=== PATIENT | female | born 1965 | race African-American/Black ===

== ENCOUNTER 2017-03-11 15:33 | Observation (INO) | payer MEDICARE, OTHER ==
[~2017-03-11 15:33] MED LIST: ALBUAER3 INH; ATEN25TA PO; BECL80AE3 INH; CETI10 PO; CLON0.1T PO; CYCL1TAB29 PO; DICY20TA10 PO; HYDR-3516 PO; IBUP-232 PO; LOSA25TA PO; METH500T3 PO; MONT10TA4 PO; NAPR500T PO; OMEP20TA PO; TRAM50TA PO; TRIME100 PO
[2017-03-11 15:34] VITALS: BP 152/85; PULSE 58; RESP 15; TEMP 98; O2SAT 100
--- NOTE | 2017-03-11 16:00 | PD ---
Physical Exam Date Seen by Provider: Mar 11, 2017 Time Seen by Provider: 15:55 Narrative Pt is a 51 year old female presenting to the ED for evaluation of Left arm, shoulder and anterior left upper chest wall pain. Symptoms started this morning after she was on the phone using the left arm to talk, and hung up the phone. She states she could not extend her left arm. Pain is constant and worse with movement. Reports history of a heart attack, loop recorder secondary to v-fib. VSS. Awaiting bed placement. Data Data Last Documented VS Vital Signs Date Time Temp Pulse Resp B/P (MAP) Pulse Ox O2 Delivery O2 Flow Rate FiO2 03/11/17 15:34 98.0 58 15 152/85 (107) 100 MDM Supervised Visit with SHIRA: Monae De La Rosa Mar 11, 2017 16:00
--- NOTE | 2017-03-11 16:18 | RADRPT ---
EXAM DATE/TIME: 03/11/2017 16:18 [facility] COMPARISON: No previous studies available for comparison. INDICATIONS : Chest pain. MEDICAL HISTORY : Hypertension. Chronic obstructive pulmonary disease. SURGICAL HISTORY : Loop recorder. ENCOUNTER: Initial ACUITY: 1 day PAIN SCORE: 8/10 LOCATION: Bilateral chest FINDINGS: PA and lateral views of the chest demonstrate the lungs to be symmetrically aerated without evidence of mass, infiltrate or effusion. Mild cardiomegaly. No pulmonary vascular engorgement observed. Monit oring device overlying the anterior left chest. Osseous structures are intact. CONCLUSION: Mild cardiomegaly. Clear lungs. Donal Plunkett Jr., MD on March 11, 2017 at 16:16 Board Certified Radiologist. This report was verified electronically.
[2017-03-11 16:59] LABS: AUTOMATED NEUTROPHIL # 5.8 TH/MM3 (1.8-7.7); BASOPHIL % 0.5 % (0.0-2.0); EOSINOPHIL # 0.1 TH/MM3 (0-0.4); EOSINOPHIL % 1.2 % (0.0-4.0); HEMATOCRIT 37.5 % (35.0-46.0); HEMO FLAGS DIFF FINAL; LYMPH % 30.5 % (9.0-44.0); LYMPHOCYTE # 2.9 TH/MM3 (1.0-4.8); MEAN CELL VOLUME 89.7 FL (80.0-100.0); MEAN CORPUSCULAR HEMOGLOBIN 28.9 PG (27.0-34.0); MEAN CORPUSCULAR HGB CONC 32.2 % (32.0-36.0); MONO % 7.3 % (0.0-8.0); NEUT % 60.5 % (16.0-70.0); PLATELET COUNT 339 TH/MM3 (150-450); RED BLOOD COUNT 4.18 MIL/MM3 (4.00-5.30); RED CELL DISTRIBUTION WIDTH 14.4 % (11.6-17.2); WHITE BLOOD COUNT 9.7 TH/MM3 (4.0-11.0)
[2017-03-11 17:15] LABS: ALT (GPT) 34 U/L (10-53); ANION GAP 7 MEQ/L (5-15); AST (GOT) 24 U/L (15-37); BLOOD UREA NITROGEN 13 MG/DL (7-18); CHLORIDE 108 MEQ/L (98-107); GLOMERULAR FILTRATION RATE 88 ML/MIN (>89); POTASSIUM 4.4 MEQ/L (3.5-5.1); SODIUM (NA) 143 MEQ/L (136-145)
[2017-03-11 17:19] LABS: ALKALINE PHOSPHATASE 91 U/L (45-117); CREATINE KINASE 577 U/L (26-192); TOTAL BILIRUBIN ADULT 0.4 MG/DL (0.2-1.0)
[2017-03-11 17:31] LABS: CKMB 11.5 NG/ML (0.5-3.6)
[2017-03-11] MEDS ORDERED: ASPIRIN 325 MG TAB PO ONE (18:00)
[2017-03-11] MEDS ORDERED: ONDANSETRON HCL 4 MG/2 ML VIAL IV PUSH ONE (18:15)
[2017-03-11] MEDS ORDERED: MORPHINE SULFATE 4 MG/ML INJ IV PUSH ONE (18:15)
--- NOTE | 2017-03-11 18:18 | PD ---
HPI Chief Complaint: Pain: Acute or Chronic Time Seen by Provider: 17:55 Travel History International Travel<30 days: No Contact w/Intl Traveler<30days: No Traveled to known affect area: No History of Present Illness HPI 51-year-old female that presents to the ED for evaluation of back pain on the left chest and left arm. Patient has had this since today when she was talking on the phone with her daughter. Per patient she was talking on the phone with her daughter with her elbow on the counter and then she noticed that after she stopped talking to her. From started hurting. Per patient from the mid elbow to the left chest. Per patient she's never had like this before. She does have a history of significant heart disease including having a quarter as well as V. tach in the past and hypertension. She had heart surgery when she was younger for a whole in her heart. Patient is tender with touch. But not completely. Per patient pain is 8 out of 10. Gets worse with movement. Patient also gets worse with exertion. Denies any recent travel. Per patient she's had a stress test about one to 2 years ago. 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 She denies any abdominal pain. No nausea or vomiting. Nothing seems to make the pain better. She took baby aspirin today. Per patient pain is sharp. PFSH Past Medical History Arthritis: Yes Asthma: Yes Cardiovascular Problems: Yes COPD: Yes GERD: Yes Hypertension: Yes Migraines: Yes Menopausal: Yes Dilation and Curettage (D&C): Yes Past Surgical History Cardiac Surgery: Yes (OPEN HEART) Genitourinary Surgery: Yes (KIDNEY SURGERY X 5) Social History Alcohol Use: No Tobacco Use: No Substance Use: No Allergies-Medications (Allergen,Severity, Reaction): Coded Allergies: doxycycline (Verified Allergy, Severe, 03/11/17) lisinopril (Verified Allergy, Severe, 03/11/17) minocycline (Verified Allergy, Severe, 03/11/17) sumatriptan (Verified Allergy, Severe, 03/11/17) tetracycline (Verified Allergy, Severe, Anaphylaxis, 03/11/17) tigecycline (Verified Allergy, Severe, 03/11/17) morphine (Verified Allergy, Intermediate, Hallucinations, 03/11/17) Uncoded Allergies: GI COCKTAIL (Allergy, Severe, 11/19/16) Reported Meds & Prescriptions Reported Meds & Active Scripts Active Reported Methocarbamol 500 Mg Tab 500 Mg PO TID Naproxen 500 Mg Tab 500 Mg PO BID Omeprazole 20 Mg Tab 20 Mg PO DAILY Hydrocodone-Acetaminophen 5-325 mg Tab 1 Tab PO Q6H PRN Losartan (Losartan Potassium) 25 Mg Tab 25 Mg PO DAILY Clonidine (Clonidine HCl) 0.1 Mg Tab 0.1 Mg PO BID Trimethoprim 100 Mg Tab 100 Mg PO BID Montelukast (Montelukast Sodium) 10 Mg Tab 10 Mg PO HS Cetirizine (Cetirizine HCl) 10 Mg Tab 10 Mg PO DAILY Qvar Inh (Beclomethasone Dipropionate) 80 Mcg/Act Aero 1 Puff INH BID Proair Hfa 8.5 GM Inh (Albuterol Sulfate) 90 Mcg/Act Aer 1 Puff INH Q4H PRN 108 mcg/actuation Tramadol (Tramadol HCl) 50 Mg Tab 50 Mg PO Q6H PRN Atenolol 25 Mg Tab 25 Mg PO DAILY Review of Systems Except as stated in HPI: all other systems reviewed are Neg Physical Exam Narrative GENERAL: SKIN: Warm and dry. HEAD: Atraumatic. Normocephalic. EYES: Pupils equal and round. No scleral icterus. No injection or drainage. ENT: No nasal bleeding or discharge. Mucous membranes pink and moist. Tongue is midline. No uvula deviation. NECK: Trachea midline. No JVD. CARDIOVASCULAR: Regular rate and rhythm. No murmurs, S3, S4. Some of the chest discomfort is reproducible with touch on the left side. RESPIRATORY: No accessory muscle use. Clear to auscultation. Breath sounds equal bilaterally. GASTROINTESTINAL: Abdomen soft, non-tender, nondistended. Hepatic and splenic margins not palpable. MUSCULOSKELETAL: Extremities without clubbing, cyanosis, or edema. No obvious deformities. Full range of motion of the upper and lower extremities bilaterally. Pain range of motion of the left upper extremity. 2+ pulses bilaterally. NEUROLOGICAL: Awake and alert. No obvious cranial nerve deficits. Motor grossly within normal limits. Five out of 5 muscle strength in the arms and legs. Normal speech. PSYCHIATRIC: Appropriate mood and affect; insight and judgment normal. Data Data Last Documented VS Vital Signs Date Time Temp Pulse Resp B/P (MAP) Pulse Ox O2 Delivery O2 Flow Rate FiO2 03/11/17 18:11 60 15 03/11/17 15:34 98.0 152/85 (107) 100 Orders Orders Electrocardiogram (03/11/17 16:00) Ckmb (Isoenzyme) Profile (03/11/17 16:00) Complete Blood Count With Diff (03/11/17 16:00) Comprehensive Metabolic Panel (03/11/17 16:00) Magnesium (Mg) (03/11/17 16:00) Prothrombin Time / Inr (Pt) (03/11/17 16:00) Act Partial Throm Time (Ptt) (03/11/17 16:00) Troponin I (03/11/17 16:00) Chest, Pa & Lat (03/11/17 16:00) CKMB (03/11/17 16:15) CKMB% (03/11/17 16:15) Aspirin (Aspirin) (03/11/17 18:00) Morphine Inj (Morphine Inj) (03/11/17 18:15) Ondansetron Inj (Zofran Inj) (03/11/17 18:15) Humerus (Min 2vws) (03/11/17 ) Admit Order (Ed Use Only) (03/11/17 18:44) Labs Laboratory Tests Test 03/11/17 16:15 White Blood Count 9.7 TH/MM3 Red Blood Count 4.18 MIL/MM3 Hemoglobin 12.1 GM/DL Hematocrit 37.5 % Mean Corpuscular Volume 89.7 FL Mean Corpuscular Hemoglobin 28.9 PG Mean Corpuscular Hemoglobin Concent 32.2 % Red Cell Distribution Width 14.4 % Platelet Count 339 TH/MM3 Mean Platelet Volume 7.7 FL Neutrophils (%) (Auto) 60.5 % Lymphocytes (%) (Auto) 30.5 % Monocytes (%) (Auto) 7.3 % Eosinophils (%) (Auto) 1.2 % Basophils (%) (Auto) 0.5 % Neutrophils # (Auto) 5.8 TH/MM3 Lymphocytes # (Auto) 2.9 TH/MM3 Monocytes # (Auto) 0.7 TH/MM3 Eosinophils # (Auto) 0.1 TH/MM3 Basophils # (Auto) 0.0 TH/MM3 CBC Comment DIFF FINAL Differential Comment Prothrombin Time 11.0 SEC Prothromb Time International Ratio 1.0 RATIO Activated Partial Thromboplast Time 27.0 SEC Blood Urea Nitrogen 13 MG/DL Creatinine 0.82 MG/DL Random Glucose 125 MG/DL Total Protein 8.4 GM/DL Albumin 3.5 GM/DL Calcium Level 8.9 MG/DL Magnesium Level 2.0 MG/DL Alkaline Phosphatase 91 U/L Aspartate Amino Transf (AST/SGOT) 24 U/L Alanine Aminotransferase (ALT/SGPT) 34 U/L Total Bilirubin 0.4 MG/DL Sodium Level 143 MEQ/L Potassium Level 4.4 MEQ/L Chloride Level 108 MEQ/L Carbon Dioxide Level 28.0 MEQ/L Anion Gap 7 MEQ/L Estimat Glomerular Filtration Rate 88 ML/MIN Total Creatine Kinase 577 U/L Creatine Kinase MB 11.5 NG/ML Creatine Kinase MB % 2.0 % Troponin I LESS THAN 0.02 NG/ML MDM Medical Decision Making Medical Screen Exam Complete: Yes Emergency Medical Condition: Yes Medical Record Reviewed: Yes Interpretation(s) CBC & BMP Diagram 03/11/17 16:15 Total Protein 8.4 H, Albumin 3.5, Calcium Level 8.9, Magnesium Level 2.0, Alkaline Phosphatase 91, Aspartate Amino Transf (AST/SGOT) 24, Alanine Aminotransferase (ALT/SGPT) 34, Total Bilirubin 0.4 Troponin negative. CK slightly elevated. Last Impressions Chest X-Ray 03/11/17 1600 Signed Impressions: Service Date/Time: Saturday, March 11, 2017 16:18 - CONCLUSION: Mild cardiomegaly. Clear lungs. Donal Plunkett Jr., MD EKG shows sinus bradycardia with no sign of acute ischemia or arrhythmia read by me and attending. Differential Diagnosis Chest pain versus a typical chest pain versus musculoskeletal pain versus ACS versus anxiety Narrative Course 51-year-old female that presents to the ED for evaluation of chest pain and left arm pain. Patient was properly examined and was found to have signs and symptoms consistent with muscle scale pain. Patient does report to have risk factors for heart disease. Including heart disease herself. At this time I recommend labs and imaging. Patient's labs and imaging were reassuring. No sign of acute NC. Case was discussed in my attending Dr Mathew who recommends giving patient the option for admission for chest pain rule out. Patient was given aspirin and morphine with some relief. Procedures EKG Prior to Arrival: No Diagnosis Primary Impression: Chest pain in adult Admitting Information Admitting Physician Requests: Observation Chirag Cobian Mar 11, 2017 18:18
[2017-03-11] MEDS ORDERED: ONDANSETRON HCL 4 MG/2 ML VIAL IV PRN (18:45)
[2017-03-11] MEDS ORDERED: ACETAMINOPHEN 500 MG CPLT PO PRN (18:45)
[2017-03-11] MEDS ORDERED: SODIUM CHLORIDE 0.9% FLUSH 10 ML FLUSH IV FLUSH PRN (18:45)
[2017-03-11] MEDS ORDERED: ACETAMINOPHEN/HYDROcodone 325 MG/7.5 MG TAB PO PRN (18:45)
--- NOTE | 2017-03-11 19:16 | RADRPT ---
EXAM DATE/TIME: 03/11/2017 18:19 [facility] COMPARISON: No previous studies available for comparison. INDICATIONS : Left humerus pain no known injury. MEDICAL HISTORY : None. SURGICAL HISTORY : None. ENCOUNTER: Initial ACUITY: 1 day PAIN SCORE: 8/10 LOCATION: Left humerus. FINDINGS: Two view examination of the left humerus demonstrates no evidence of fracture or dislocation. Bony m ineralization is normal. The soft tissue structures are intact. CONCLUSION: Unremarkable examination of the left humerus. Reinier Casey MD on March 11, 2017 at 19:14 Board Certified Radiologist. This report was verified electronically.
[2017-03-11 19:39] VITALS: BP 144/65; PULSE 61; RESP 18; O2SAT 98
[2017-03-11 20:00] VITALS: O2SAT 98
[2017-03-11] MEDS: SODIUM CHLORIDE 0.9% FLUSH 10 ML FLUSH IV FLUSH SCH (21:00)
[2017-03-11 21:08] VITALS: BP 135/69; PULSE 58; RESP 18; TEMP 98.6; O2SAT 99
[2017-03-11 21:21] LABS: CREATINE KINASE 643 U/L (26-192)
[2017-03-11 21:34] LABS: CKMB 10.9 NG/ML (0.5-3.6)
[2017-03-11 23:33] VITALS: BP 136/61; PULSE 58; RESP 17; TEMP 98.6; O2SAT 98
[2017-03-12 00:56] LABS: CREATINE KINASE 578 U/L (26-192)
[2017-03-12 01:08] LABS: CKMB 9.7 NG/ML (0.5-3.6)
[2017-03-12 03:39] VITALS: BP 122/60; PULSE 53; RESP 17; TEMP 98.5; O2SAT 98
[2017-03-12 06:25] VITALS: PULSE 72
[2017-03-12 07:21] VITALS: BP 125/71; PULSE 61; RESP 18; TEMP 97.8; O2SAT 98
[2017-03-12 07:43] VITALS: PULSE 63
[2017-03-12 07:48] VITALS: PULSE 95
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
[2017-03-12] MEDS: SODIUM CHLORIDE 0.9% FLUSH 10 ML FLUSH IV FLUSH SCH (07:56)
[2017-03-12] MEDS ORDERED: NITROGLYCERIN 0.4 MG SL 25 TABS/BTL SL PRN (08:00)
[2017-03-12] MEDS ORDERED: PANTOPRAZOLE SOD 20 MG DELAYED RELEASE TAB PO SCH (09:00)
[2017-03-12] MEDS ORDERED: CETIRIZINE HCL 10 MG TAB PO SCH (09:00)
[2017-03-12] MEDS ORDERED: LOSARTAN 25 MG TAB PO SCH (09:00)
--- NOTE | 2017-03-12 09:52 | TR ---
Date Performed: 03/12/2017 Time Performed: 09:19:33 DOCTOR: Katina Rivera DRUG LIST: CLINICAL HISTORY: REASON FOR TEST: REASON FOR ENDING: OBSERVATION: CONCLUSION: Torsten protocol performed, test stopped when target heart rate reached secondary to h ip pain. ST depression in inferior and lateral leads, returned to baseline in recovery stage. Good ex ercise tolerance. No reproduc chest discomfort. Rare PVC. Hypertensive BP response, returned to basel ine. Maximum QC=386 Target HR Achieved=90.0% Maximum PP=924/84 Total Exercise Time=3:01. COMMENTS:
--- NOTE | 2017-03-12 09:55 | EKG ---
Date Performed: 03/11/2017 Time Performed: 23:29:58 PTAGE: 51 years EKG: SINUS BRADYCARDIA BORDERLINE ECG Since PREVIOUS TRACING , no significant change noted DOCTOR: Katina Rivera Interpretating Date/Time 03/12/2017 09:53:50
--- NOTE | 2017-03-12 09:55 | EKG ---
Date Performed: 03/11/2017 Time Performed: 20:05:26 PTAGE: 51 years EKG: SINUS BRADYCARDIA BORDERLINE ECG Since PREVIOUS TRACING , no significant change noted DOCTOR: Katina Rivera Interpretating Date/Time 03/12/2017 09:54:54
--- NOTE | 2017-03-12 09:58 | EKG ---
Date Performed: 03/11/2017 Time Performed: 16:27:37 PTAGE: 51 years EKG: SINUS BRADYCARDIA BORDERLINE ECG Since PREVIOUS TRACING , no significant change noted DOCTOR: Katina Rivera Interpretating Date/Time 03/12/2017 09:56:52
--- NOTE | 2017-03-12 10:09 | HHI.DCPOC ---
Discharge Care Plan Diagnosis: (1) History of loop recorder (2) Musculoskeletal arm pain Goals to Promote Your Health * To prevent worsening of your condition and complications * To maintain your health at the optimal level Directions to Meet Your Goals Take your medications as prescribed Follow your dietary instruction Follow activity as directed Keep your appointments as scheduled Take your immunizations and boosters as scheduled If your symptoms worsen call your PCP, if no PCP go to Urgent Care Center or Emergency Room Smoking is Dangerous to Your Health. Avoid second hand smoke Call the 24-hour hour crisis hotline for domestic abuse at Elsa Saxena Mar 12, 2017 10:08
[2017-03-12] MEDS ORDERED: ATENOLOL 25 MG TAB PO SCH (11:00)
[2017-03-13] MEDS ORDERED: SERT-132 PO (08:03)
[2017-03-13] MEDS ORDERED: VOLT1GEL4 (08:03)
[2017-03-13] MEDS ORDERED: PROM12.54 PO (08:03)
[2017-03-13] MEDS ORDERED: NITR1CAP36 PO (08:03)
[2017-03-19] MEDS ORDERED: OXYB5TAB10 PO (09:51)
== END 2017-03-12 12:21 | disposition home or self-care (01) ==
LOC: NEPC 15:33 → NEDA 18:45 → NEPFCDU 20:51
PROVIDERS: ADMIT Internal Medicine Cardiovascular Disease; ATTEND Internal Medicine Cardiovascular Disease
DX: M79.602 Pain in left arm (principal); R07.89 Other chest pain; R00.1 Bradycardia, unspecified; I10 Essential (primary) hypertension; K21.9 Gastro-esophageal reflux disease without esophagitis
CPT/HCPCS: 71020; 73060; 80053; 82550; 82552; 83735; 84484; 85025; 85610; 85730; 93005; 93017; 96374; 99285; G0378; J2405

== ENCOUNTER 2017-03-13 06:59 | Emergency (ER) | payer MEDICARE, MEDICAID ==
[~2017-03-13] VITALS: Ht 162.6 cm; Wt 82.0 kg
[~2017-03-13 06:59] MED LIST changes: -CYCL1TAB29 PO; -DICY20TA10 PO; -IBUP-232 PO
[2017-03-13 07:01] VITALS: BP 171/76; PULSE 77; RESP 18; TEMP 98.7; O2SAT 100
[2017-03-13] MEDS ORDERED: LORazepam 2 MG/ML VIAL IV PUSH ONE (07:45)
[2017-03-13] MEDS ORDERED: diphenhydrAMINE HCL 50 MG/ML VIAL IV PUSH ONE (07:45)
[2017-03-13] MEDS ORDERED: NITR1CAP36 PO (08:03)
[2017-03-13] MEDS ORDERED: VOLT1GEL4 (08:03)
[2017-03-13] MEDS ORDERED: PROM12.54 PO (08:03)
[2017-03-13] MEDS ORDERED: SERT-132 PO (08:03)
--- NOTE | 2017-03-13 08:06 | PD ---
HPI Chief Complaint: Allergic/Adverse Reaction Time Seen by Provider: 07:31 Travel History International Travel<30 days: No Contact w/Intl Traveler<30days: No Traveled to known affect area: No History of Present Illness HPI This is a 51 year old female who presents to the emergency department with multiple complaints. She says last night she took Eliquis for the first time and the ever since then she has been jittery, constant, severe. She has felt anxious, tingly and has had some headache and increasing pain on the left side of her chest. She feels confident that she is having an allergic reaction to Eliquis. She was just discharged from the chest pain center yesterday in the setting of left-sided chest discomfort. She had a reassuring stress test. She was started on Xarelto because she has a history of paroxysmal A. fib. Her primary care doctor told her to take it but she hadn't started it yet. Patient says she has had allergic reactions before and they've been very similar to this. She says she took 25 mg of oral Benadryl at home but her symptoms have not improved. PFSH Past Medical History Hx Anticoagulant Therapy: Yes (eliquis) Arthritis: Yes Asthma: Yes Atrial Fibrillation: Yes Heart Rhythm Problems: No Cardiac Catheterization: No Cardiovascular Problems: Yes (age 3 hole in heart repair, hx angina) High Cholesterol: No Congestive Heart Failure: No COPD: Yes Diabetes: No GERD: Yes Hypertension: Yes Migraines: Yes Influenza Vaccination: Yes ?: Not Menopausal: Yes Dilation and Curettage (D&C): Yes Tubal Ligation: Yes Past Surgical History Cardiac Surgery: Yes (OPEN HEART) Coronary Artery Bypass Graft: No Genitourinary Surgery: Yes ( kidney x5 (recurrent stones)) Hysterectomy: No Social History Alcohol Use: No Tobacco Use: No Substance Use: No Allergies-Medications (Allergen,Severity, Reaction): Coded Allergies: doxycycline (Verified Allergy, Severe, 03/13/17) lisinopril (Verified Allergy, Severe, 03/13/17) minocycline (Verified Allergy, Severe, 03/13/17) sumatriptan (Verified Allergy, Severe, 03/13/17) tetracycline (Verified Allergy, Severe, Anaphylaxis, 03/13/17) tigecycline (Verified Allergy, Severe, 03/13/17) morphine (Verified Allergy, Intermediate, Hallucinations, 03/13/17) apixaban (Verified Adverse Reaction, Mild, Headache, 03/13/17) Uncoded Allergies: GI COCKTAIL (Allergy, Severe, 11/19/16) Reported Meds & Prescriptions Reported Meds & Active Scripts Active Reported Promethazine (Promethazine HCl) 12.5 Mg Tab 25 Mg PO Q6H PRN Nitrofurantoin Macrocrystal 100 Mg Cap 200 Mg PO BID Sertraline (Sertraline HCl) 50 Mg Tab 50 Mg PO BID Voltaren (Diclofenac Sodium) 1 % Gel..gram. Methocarbamol 500 Mg Tab 500 Mg PO QID Naproxen 500 Mg Tab 500 Mg PO BID Omeprazole 20 Mg Tab 20 Mg PO DAILY Hydrocodone-Acetaminophen 5-325 mg Tab 1 Tab PO Q6H PRN Losartan (Losartan Potassium) 25 Mg Tab 25 Mg PO DAILY Clonidine (Clonidine HCl) 0.1 Mg Tab 0.1 Mg PO BID For BP >170/100 Trimethoprim 100 Mg Tab 100 Mg PO HS Montelukast (Montelukast Sodium) 10 Mg Tab 10 Mg PO HS Cetirizine (Cetirizine HCl) 10 Mg Tab 10 Mg PO DAILY Qvar Inh (Beclomethasone Dipropionate) 80 Mcg/Act Aero 1 Puff INH BID Proair Hfa 8.5 GM Inh (Albuterol Sulfate) 90 Mcg/Act Aer 1 Puff INH Q4H PRN 108 mcg/actuation Tramadol (Tramadol HCl) 50 Mg Tab 50 Mg PO Q6H PRN Atenolol 25 Mg Tab 50 Mg PO BID Review of Systems Except as stated in HPI: all other systems reviewed are Neg Physical Exam Narrative GENERAL:Well appearing, no acute distress SKIN: Focused skin assessment warm and dry. HEAD: Atraumatic. Normocephalic. EYES: Pupils equal and round. No injection or drainage. ENT: Moist mucous membranes NECK: Trachea midline. CARDIOVASCULAR: Regular rate and rhythm. No murmur appreciated. RESPIRATORY: Clear to auscultation. Breath sounds equal bilaterally. GASTROINTESTINAL: Abdomen soft, non-tender, nondistended. MUSCULOSKELETAL: No obvious deformities. NEUROLOGICAL: Intermittently shaking her upper extremities and torso from side to side. Seems voluntary. Awake and alert. No obvious cranial nerve deficits. No dysarthria or aphasia. No upper or lower extremity drift. No upper extremity ataxia. PSYCHIATRIC: Anxious Data Data Last Documented VS Vital Signs Date Time Temp Pulse Resp B/P (MAP) Pulse Ox O2 Delivery O2 Flow Rate FiO2 03/13/17 07:01 98.7 77 18 171/76 (107) 100 Orders Orders Diphenhydramine Inj (Benadryl Inj) (03/13/17 07:45) Lorazepam Inj (Ativan Inj) (03/13/17 07:45) MDM Medical Decision Making Medical Screen Exam Complete: Yes Emergency Medical Condition: Yes Differential Diagnosis Medication adverse reaction, anxiety, stroke, TIA Narrative Course This is a 51-year-old female who presents to the emergency department with multiple nonspecific symptoms the worst of which is jitteriness and palpitations. She says this started ever since she took Eliquis last evening for the first time. She feels fairly confident this is a drug reaction. She appears very anxious on exam. She appears to have some voluntary movements of her arms or legs which she describes as jitteriness. I suspect the patient is severing from anxiety. She acknowledges that she struggled with anxiety in the past. She was given 25 mg of Benadryl and a half milligram of Ativan. She feels much better on reassessment. I think she is safe for discharge. She just had a complete workup and was discharged from the chest pain center yesterday with a negative stress test. I don't think any additional testing is warranted at this time. Diagnosis Primary Impression: Adverse reaction to drug Qualified Codes: T88.7XXA - Unspecified adverse effect of drug or medicament, initial encounter Additional Impression: Anxiety Patient Instructions: General Instructions Additional Instructions: If you develop severe chest pain, shortness of breath, sweating, lightheadedness , dizziness or difficulty breathing return to the emergency department immediately. Followup with your primary care physician in 2-3 days if your symptoms are not resolved. Med/Other Pt SpecificInfo: No Change to Meds Disposition: 01 DISCHARGE HOME Condition: Stable Kim Hoover MD Mar 13, 2017 08:06
[2017-03-19] MEDS ORDERED: OXYB5TAB10 PO (09:51)
== END 2017-03-13 09:29 | disposition home or self-care (01) ==
LOC: NEPC 06:59
DX: R00.2 Palpitations (principal); T45.515A Adverse effect of anticoagulants, initial encounter; F41.9 Anxiety disorder, unspecified; I48.0 Paroxysmal atrial fibrillation; I10 Essential (primary) hypertension; M19.90 Unspecified osteoarthritis, unspecified site; J44.9 Chronic obstructive pulmonary disease, unspecified; J45.909 Unspecified asthma, uncomplicated; K21.9 Gastro-esophageal reflux disease without esophagitis
CPT/HCPCS: 96374; 96375; 99284; J1200; J2060

== ENCOUNTER 2017-07-07 10:06 | Emergency (ER) | payer MEDICARE, MEDICAID ==
[~2017-07-07] VITALS: Ht 165.1 cm; Wt 85.3 kg
[~2017-07-07 10:06] MED LIST changes: -NAPR500T PO; +NAPR500T2 PO; +NITR1CAP36 PO; -OMEP20TA PO; +OMEP20TA93 PO; +OXYB5TAB8 PO; +PROM12.54 PO; +SERT-132 PO; +VOLT1GEL16
[2017-07-07 10:16] VITALS: BP 149/65; PULSE 74; RESP 16; TEMP 98.3; O2SAT 97
[2017-07-07] MEDS ORDERED: SODIUM CHLOR 0.9% 1000 ML INJ 1,000 ML IV SCH (10:30)
[2017-07-07] MEDS ORDERED: SODIUM CHLORIDE 0.9% FLUSH 10 ML FLUSH IV FLUSH PRN (10:30)
[2017-07-07] MEDS ORDERED: ONDANSETRON HCL 4 MG/2 ML VIAL IVP ONE (10:30)
[2017-07-07] MEDS ORDERED: KETOROLAC TROMETHAMINE 30 MG/ML (IVP) VIAL IVP ONE (10:30)
[2017-07-07 11:01] LABS: BILIRUBIN, URINE NEG (NEG); BLOOD, URINE MOD (NEG); GLUCOSE,URINE NEG (NEG); KETONE, URINE NEG (NEG); NITRITE,URINE NEG (NEG); URINE LEUKOCYTE ESTERASE NEG (NEG)
[2017-07-07 11:02] LABS: AUTOMATED NEUTROPHIL # 6.3 TH/MM3 (1.8-7.7); BASOPHIL # 0.1 TH/MM3 (0-0.2); BASOPHIL % 0.7 % (0.0-2.0); EOSINOPHIL # 0.3 TH/MM3 (0-0.4); EOSINOPHIL % 2.9 % (0.0-4.0); HEMATOCRIT 38.8 % (35.0-46.0); HEMOGLOBIN 12.6 GM/DL (11.6-15.3); LYMPH % 25.2 % (9.0-44.0); LYMPHOCYTE # 2.6 TH/MM3 (1.0-4.8); MEAN CELL VOLUME 88.1 FL (80.0-100.0); MEAN CORPUSCULAR HEMOGLOBIN 28.7 PG (27.0-34.0); MEAN CORPUSCULAR HGB CONC 32.6 % (32.0-36.0); MEAN PLATELET VOLUME 7.6 FL (7.0-11.0); MONO % 8.3 % (0.0-8.0); MONOCYTE # 0.8 TH/MM3 (0-0.9); NEUT % 62.9 % (16.0-70.0); PLATELET COUNT 348 TH/MM3 (150-450); RED CELL DISTRIBUTION WIDTH 12.8 % (11.6-17.2); WHITE BLOOD COUNT 10.1 TH/MM3 (4.0-11.0)
[2017-07-07 11:09] LABS: MUCUS URINE FEW /lpf (OCC); URINE COLOR YELLOW (YELLW/STRAW)
[2017-07-07 11:10] LABS: BACTERIA, URINE FEW /hpf; SQUAMOUS EPITHELIAL CELL URINE 0-5 /hpf (0-5)
[2017-07-07 11:14] LABS: CALCIUM 8.9 MG/DL (8.5-10.1); PROTHROMBIN TIME - PATIENT 10.6 SEC (9.8-11.6)
[2017-07-07 11:15] LABS: ALBUMIN 3.2 GM/DL (3.4-5.0)
[2017-07-07 11:17] LABS: DIRECT BILIRUBIN ADULT 0.1 MG/DL (0.0-0.2)
[2017-07-07 11:18] LABS: CREATININE 0.85 MG/DL (0.50-1.00)
[2017-07-07 11:19] LABS: INDIRECT BILIRUBIN 0.3 MG/DL (0.0-0.8); TOTAL BILIRUBIN ADULT 0.4 MG/DL (0.2-1.0); TOTAL PROTEIN 8.1 GM/DL (6.4-8.2)
[2017-07-07] MEDS ORDERED: ASPI-516 PO (11:31)
[2017-07-07 11:32] VITALS: RESP 17; O2SAT 98
[2017-07-07] MEDS ORDERED: IOHEXOL 350 MG/ML 10 ML VIAL (for RAD DIAG) IVCONTRAST ONE (11:42)
--- NOTE | 2017-07-07 11:48 | PD ---
HPI Chief Complaint: Abdominal Pain Time Seen by Provider: 10:25 Travel History International Travel<30 days: No Contact w/Intl Traveler<30days: No Traveled to known affect area: No History of Present Illness HPI Patient is a 51-year-old female who comes in complaining of right upper quadrant abdominal pain that radiates to her back. She says it started last night, seems to be getting worse. She has tried taking Aleve, which helped for a little while, but the pain came back. She has a pain is not related to food. She denies nausea or vomiting. She denies any urinary symptoms. She denies fever or chills. She says she has history of kidney stones, but this pain feels different. PFSH Past Medical History Hx Anticoagulant Therapy: Yes (BABY ASA DAILY) Arthritis: Yes Asthma: Yes Atrial Fibrillation: Yes Heart Rhythm Problems: No Cardiac Catheterization: No Cardiovascular Problems: Yes (age 3 hole in heart repair, hx angina) High Cholesterol: No Congestive Heart Failure: No COPD: Yes Diabetes: No GERD: Yes Hypertension: Yes Migraines: Yes Tetanus Vaccination: > 5 Years Influenza Vaccination: Yes ?: Unknown Menopausal: Yes Dilation and Curettage (D&C): Yes Tubal Ligation: Yes Past Surgical History Cardiac Surgery: Yes (OPEN HEART) Coronary Artery Bypass Graft: No Genitourinary Surgery: Yes ( kidney x5 (recurrent stones)) Hysterectomy: No Social History Alcohol Use: No Tobacco Use: No Substance Use: No Allergies-Medications (Allergen,Severity, Reaction): Coded Allergies: doxycycline (Verified Allergy, Severe, 07/07/17) lisinopril (Verified Allergy, Severe, 07/07/17) minocycline (Verified Allergy, Severe, 07/07/17) sumatriptan (Verified Allergy, Severe, 07/07/17) tetracycline (Verified Allergy, Severe, Anaphylaxis, 07/07/17) tigecycline (Verified Allergy, Severe, 07/07/17) morphine (Verified Allergy, Intermediate, Hallucinations, 07/07/17) apixaban (Verified Adverse Reaction, Mild, Headache, 07/07/17) Uncoded Allergies: GI COCKTAIL (Allergy, Severe, 11/19/16) Reported Meds & Prescriptions Reported Meds & Active Scripts Active Reported Aspirin 81 Mg Chew 81 Mg PO DAILY Atenolol 25 Mg Tab 50 Mg PO BID Review of Systems Except as stated in HPI: all other systems reviewed are Neg General / Constitutional: No: Fever, Chills HENT: No: Headaches, Lightheadedness Cardiovascular: No: Chest Pain or Discomfort Respiratory: No: Shortness of Breath Gastrointestinal: Positive: Abdominal Pain, No: Nausea, Vomiting Genitourinary: Positive: Hematuria, No: Dysuria Skin: No Rash, No Change in Pigmentation Neurologic: No: Weakness, Dizziness Physical Exam Narrative GENERAL: Awake and alert, in no acute distress. SKIN: Focused skin assessment warm/dry. HEAD: Atraumatic. Normocephalic. EYES: Pupils equal and round. No scleral icterus. ENT: Mucous membranes pink and moist. NECK: Trachea midline. No JVD. CARDIOVASCULAR: Regular rate and rhythm. No murmur appreciated. RESPIRATORY: No accessory muscle use. Clear to auscultation. Breath sounds equal bilaterally. GASTROINTESTINAL: Abdomen soft, nondistended. Tender to palpation of the right upper quadrant, no rebound or guarding. No CVA tenderness. MUSCULOSKELETAL: No obvious deformities. No clubbing. No cyanosis. No edema. NEUROLOGICAL: Awake and alert. No obvious cranial nerve deficits. Motor grossly within normal limits. Normal speech. PSYCHIATRIC: Appropriate mood and affect; insight and judgment normal. Data Data Last Documented VS Vital Signs Date Time Temp Pulse Resp B/P (MAP) Pulse Ox O2 Delivery O2 Flow Rate FiO2 07/07/17 11:54 69 17 139/64 (89) 95 Room Air 07/07/17 10:16 98.3 Orders Orders Basic Metabolic Panel (Bmp) (07/07/17 10:30) Complete Blood Count With Diff (07/07/17 10:30) Lipase (07/07/17 10:30) Prothrombin Time / Inr (Pt) (07/07/17 10:30) Act Partial Throm Time (Ptt) (07/07/17 10:30) Urinalysis - C+S If Indicated (07/07/17 10:30) Ct Abd/Pel W Iv Contrast(Rout) (07/07/17 10:30) Iv Access Insert/Monitor (07/07/17 10:30) Ecg Monitoring (07/07/17 10:30) Oximetry (07/07/17 10:30) Ondansetron Inj (Zofran Inj) (07/07/17 10:30) Sodium Chlor 0.9% 1000 Ml Inj (Ns 1000 M (07/07/17 10:30) Sodium Chloride 0.9% Flush (Ns Flush) (07/07/17 10:30) Ketorolac Inj (Toradol Inj) (07/07/17 10:30) Hepatic Functional Panel (07/07/17 10:30) Iohexol 350 Inj (Omnipaque 350 Inj) (07/07/17 11:42) Ed Discharge Order (07/07/17 12:02) Labs Laboratory Tests Test 07/07/17 10:50 07/07/17 10:55 Urine Collection Type CLEAN CATCH Urine Color YELLOW Urine Turbidity CLEAR Urine pH 6.0 Urine Specific [place] 1.020 Urine Protein NEG mg/dL Urine Glucose (UA) NEG mg/dL Urine Ketones NEG mg/dL Urine Occult Blood MOD Urine Nitrite NEG Urine Bilirubin NEG Urine Leukocyte Esterase NEG Urine RBC 10-14 /hpf Urine Squamous Epithelial Cells 0-5 /hpf Urine Bacteria FEW /hpf Urine Mucus FEW /lpf Microscopic Urinalysis Comment CULT NOT INDICATED Urine Collection Time 10:50 White Blood Count 10.1 TH/MM3 Red Blood Count 4.40 MIL/MM3 Hemoglobin 12.6 GM/DL Hematocrit 38.8 % Mean Corpuscular Volume 88.1 FL Mean Corpuscular Hemoglobin 28.7 PG Mean Corpuscular Hemoglobin Concent 32.6 % Red Cell Distribution Width 12.8 % Platelet Count 348 TH/MM3 Mean Platelet Volume 7.6 FL Neutrophils (%) (Auto) 62.9 % Lymphocytes (%) (Auto) 25.2 % Monocytes (%) (Auto) 8.3 % Eosinophils (%) (Auto) 2.9 % Basophils (%) (Auto) 0.7 % Neutrophils # (Auto) 6.3 TH/MM3 Lymphocytes # (Auto) 2.6 TH/MM3 Monocytes # (Auto) 0.8 TH/MM3 Eosinophils # (Auto) 0.3 TH/MM3 Basophils # (Auto) 0.1 TH/MM3 CBC Comment DIFF FINAL Differential Comment Prothrombin Time 10.6 SEC Prothromb Time International Ratio 1.0 RATIO Activated Partial Thromboplast Time 26.4 SEC Blood Urea Nitrogen 13 MG/DL Creatinine 0.85 MG/DL Random Glucose 96 MG/DL Total Protein 8.1 GM/DL Albumin 3.2 GM/DL Calcium Level 8.9 MG/DL Alkaline Phosphatase 106 U/L Aspartate Amino Transf (AST/SGOT) 25 U/L Alanine Aminotransferase (ALT/SGPT) 32 U/L Total Bilirubin 0.4 MG/DL Direct Bilirubin 0.1 MG/DL Sodium Level 140 MEQ/L Potassium Level 3.9 MEQ/L Chloride Level 104 MEQ/L Carbon Dioxide Level 29.0 MEQ/L Anion Gap 7 MEQ/L Estimat Glomerular Filtration Rate 85 ML/MIN Indirect Bilirubin 0.3 MG/DL Lipase 147 U/L MDM Medical Decision Making Medical Screen Exam Complete: Yes Emergency Medical Condition: Yes Medical Record Reviewed: Yes Differential Diagnosis UTI versus renal stone versus cholelithiasis versus cholecystitis Narrative Course Patient is a 51 year old female who comes in complaining of RUQ abdominal pain. Exam shows pain with movement and tenderness to the RUQ. IV established, labs sent. Labs show no acute abnormalities. Patient has blood in her urine, but she says this is a chronic issue. Given pain medicine, IVF. CT abd/pelvis performed, shows no acute abnormalities. There is a possible hemangioma in the liver, suggests follow up outpatient MRI. Patient informed of these results. She reports feeling better. Advised to take Ibuprofen as needed for pain. Advised to follow up with a primary doctor. Advised to return to the ED as needed for any worsening symptoms. Diagnosis Primary Impression: Abdominal pain Qualified Codes: R10.11 - Right upper quadrant pain Patient Instructions: Abdominal Pain (ED), General Instructions Additional Instructions: Follow-up with her primary care doctor. Take ibuprofen as needed for pain. You 're CAT scan showed a possible hemangioma in your liver, which should not cause any problems, but you should follow up to have an MRI done as an outpatient to be sure. Return to the ED as needed for any worsening symptoms. Disposition: 01 DISCHARGE HOME Condition: Stable Cee Rosa MD Jul 07, 2017 11:48
[2017-07-07 11:54] VITALS: BP 139/64; PULSE 69; RESP 17; O2SAT 95
--- NOTE | 2017-07-07 11:54 | RADRPT ---
EXAM DATE/TIME: 07/07/2017 11:30 [facility] COMPARISON: No previous studies available for comparison. INDICATIONS : Right sided abdominal pain. IV CONTRAST: 95 cc Omnipaque 350 (iohexol) IV ORAL CONTRAST: No oral contrast ingested. RADIATION DOSE: 15.41 CTDIvol (mGy) MEDICAL HISTORY : Cardiovascular disease. Chronic obstructive pulmonary disease. Renal calculi.Hypertension. SURGICAL HISTORY : Tubal ligation. Open heart surgery. Loop recorder. Lithotripsy. ENCOUNTER: Initial ACUITY: 2 days PAIN SCALE: 6/10 LOCATION: Right abdomen TECHNIQUE: Volumetric scanning of the abdomen and pelvis was performed. Using automated exposure control and ad justment of the mA and/or kV according to patient size, radiation dose was kept as low as reasonably achievable to obtain optimal diagnostic quality images. DICOM format image data is available electro nically for review and comparison. FINDINGS: Lung base clear. Enhancing for 5 cm mass dome of the liver incompletely evaluated on today's exam. This may well be an hemangioma. Spleen and pancreas are unremarkable The t adrenal glands appear normal There is symmetrical renal function There is no ascites or adenopathy Large fibroid uterus is identified with the large 9 cm fibroid evident. There is no adnexal mass. There is no free fluid. Degenerative changes lumbar spine. CONCLUSION: Large fibroid uterus. Mass dome of the liver and spleen are evaluated. MRI could be used selectively as an outpatient. Vick Chopra MD FACR on July 07, 2017 at 11:50 Board Certified Radiologist. This report was verified electronically.
[2017-07-07 12:59] VITALS: BP 136/72
== END 2017-07-07 13:01 | disposition home or self-care (01) ==
LOC: PHED 10:06
DX: R10.11 Right upper quadrant pain (principal); J44.9 Chronic obstructive pulmonary disease, unspecified; I48.91 Unspecified atrial fibrillation; I10 Essential (primary) hypertension; Z79.01 Long term (current) use of anticoagulants
CPT/HCPCS: 74177; 80048; 80076; 81001; 83690; 85025; 85610; 85730; 96361; 96374; 96375; 99285; J1885; J2405; J7030; Q9967